=== PATIENT | female | born 1965 | race Caucasian/White ===

== ENCOUNTER 2021-09-16 06:01 | Emergency (ER) | payer BC, SELFPAY ==
[2021-09-16 06:17] VITALS: BP 132/84; PULSE 84; RESP 16; TEMP 36.4; O2SAT 99; BMI 32.9
--- NOTE | 2021-09-16 06:17 | CRLHL7_ITS ---
For Patients: As a result of the Century Cures Act, medical imaging exams and procedure reports are released immediately into your electronic medical record. You may view this report before your referring provider. If you have questions, please contact your health care provider. INDICATION: left calf pain COMPARISON: None. TECHNIQUE: A compression venous ultrasound exam was performed of the left lower extremity using montelongo-scale imaging, color Doppler and spectral Doppler analysis. FINDINGS: Sonographic imaging of the left lower extremity demonstrates normal compressibility and color Doppler venous blood flow within the common femoral vein, deep femoral vein, and the proximal greater saphenous vein. Within the thigh, the femoral vein is patent and compressible. At a lower level, the popliteal and posterior tibial veins also show normal compressibility. Sluggish flow in the popliteal vein and noted. Limited imaging of the contralateral groin demonstrates a normal spectral waveform and color Doppler venous blood flow within the right common femoral vein. IMPRESSION: Sluggish flow in the popliteal vein, however, there is no evidence of deep vein thrombosis within the left lower extremity. Dictated by Bonilla Main MD @ 09/16/2021 8:16:52 AM (Electronically Signed)
--- NOTE | 2021-09-16 06:18 | ED.GENADULT ---
HPI - General Adult General Time Seen by Provider: 06:18 <Damian Piña MD - Last Filed: 09/16/21 06:22> Date Seen: 09/16/21 <Damian Piña MD - Last Filed: 09/16/21 06:22> Chief complaint: Extremity Pain/Injury, Lower <Damian Piña MD - Last Filed: 09/16/21 06:22> Stated complaint: Left leg pain/headache <Damian Piña MD - Last Filed: 09/16/21 06:22> Time Seen by Provider: 09/16/21 06:10 <Damian Piña MD - Last Filed: 09/16/21 06:22> Source: patient <Damian Piña MD - Last Filed: 09/16/21 06:22> Mode of arrival: ambulatory <Damian Piña MD - Last Filed: 09/16/21 06:22> Limitations: no limitations <Damian Piña MD - Last Filed: 09/16/21 06:22> History of Present Illness HPI narrative: Patient presents with left leg pain and headache. She has 2 weeks of left leg pain, primarily on the anterior thigh sometimes going into the anterior lower leg. She describes it as aching. Does not seem to be related to walking or moving, occurs at rest as well. She took ibuprofen for this last week but nothing recently. No known injury review does not seem swollen to her. No chest pain or breathing difficulty. Patient recently drove here from [place]. She also woke up headache today. It is bi-parietal and constant with no nausea, vomiting, photophobia,, focal weakness or numbness. <Damian Piña MD - Last Filed: 09/16/21 06:22> Related Data Home medications: Home Medications Medication Instructions Recorded Confirmed No Known Home Medications 09/16/21 09/16/21 <Damian Piña MD - Last Filed: 09/16/21 06:22> Allergies/adverse reactions: Allergies Allergy/AdvReac Type Severity Reaction Status Date / Time sulfamethoxazole Allergy Intermediate Rash Verified 09/16/21 06:20 [From Sulfamethoxazole-Trimethoprim] trimethoprim Allergy Intermediate Rash Verified 09/16/21 06:20 [From Sulfamethoxazole-Trimethoprim] <Damian Piña MD - Last Filed: 09/16/21 06:22> Review of Systems Status of ROS: Reports: 10 or more systems reviewed and unremarkable except as noted in History and below <Damian Piña MD - Last Filed: 09/16/21 06:22> [facility] Medical History: Medical History (Updated 09/16/21 @ 07:51 by Damian Piña MD) No significant past medical history <Damian Piña MD - Last Filed: 09/16/21 06:22> Surgical History: Surgical History (Updated 09/16/21 @ 06:28 by Marco A Villafana RN) No significant past surgical history <Damian Piña MD - Last Filed: 09/16/21 06:22> Social History: Social History Smoking Status: Never smoker Do you use any of these nicotine containing products: None Second hand tobacco smoke exposure: No How often do you have a drink containing alcohol: never How often do you have six or more drinks on one occasion: Never AUDIT-C Alcohol total score: 0 Non-prescribed substance use: denies use <Damian Piña MD - Last Filed: 09/16/21 06:22> Exam Narrative: Exam Narrative: General: Well-developed and well-nourished, no acute distress Head: Atraumatic and normocephalic Eyes: Pupils are equal reactive, extraocular motions intact, conjunctiva clear ENT: External nose and ears are normal, posterior pharynx without erythema or exudate Neck: No midline cervical tenderness, full spontaneous range of motion the neck, trachea midline, no adenopathy Heart: Regular rate and rhythm no murmurs or thrills Lungs: Clear to auscultation bilaterally without wheezes or crackles Abdomen: Soft, nontender, nondistended with active bowel sounds Musculoskeletal: Mild diffuse tenderness of the left leg particularly anterior upper leg. Compartments of the upper and lower leg are soft. No pain with passive ankle flexion. No numbness, no decreased sensation. No tenderness of the SI area or low lumbar area. Neurologic: Awake, alert, and oriented x3, no gross focal neurologic deficits, cranial nerves intact as tested Psych: Mood and affect are appropriate Skin: No rashes <Damian Piña MD - Last Filed: 09/16/21 06:22> Const: Vital Signs, click to edit/add: Vital Signs - 24 hr 09/16/21 06:17 Temperature 97.6 F Pulse Rate [Right Pulse Oximeter] 84 Respiratory Rate 16 Blood Pressure [Ri ght Upper Arm] 132/84 Pulse Oximetry 99 Oxygen Delivery Me thod Room Air <Damian Piña MD - Last Filed: 09/16/21 06:22> Vital Signs, click to edit/add: Vital Signs - 24 hr 09/16/21 06:17 Temperature 97.6 F Pulse Rate [Right Pulse Oximeter] 84 Respiratory Rate 16 Blood Pressure [Ri ght Upper Arm] 132/84 Pulse Oximetry 99 Oxygen Delivery Me thod Room Air <Karen Rand MD - Last Filed: 09/16/21 08:39> Course Course Hospital Course: Ultrasound does not show any evidence of DVT, labs were unremarkable. <Damian Piña MD - Last Filed: 09/16/21 06:22> Vital Signs Vital signs: Initial Vital Signs Temperature 97.6 F 09/16/21 06:17 Temperature Source Temporal Artery Scan 09/16/21 06:17 Pulse Rate 84 09/16/21 06:17 Respiratory Rate 16 09/16/21 06:17 Blood Pressure 132/84 09/16/21 06:17 Blood Pressure Mean 100 09/16/21 06:17 Blood Pressure Position Sitting 09/16/21 06:17 Pulse Oximetry 99 09/16/21 06:17 Oxygen Delivery Method 09/16/21 06:17 Vital Signs Temperature 97.6 F 09/16/21 06:17 Pulse Rate 84 09/16/21 06:17 Respiratory Rate 16 09/16/21 06:17 Blood Pressure 132/84 09/16/21 06:17 Pulse Oximetry 99 09/16/21 06:17 Oxygen Delivery Method 09/16/21 06:17 Temperature 97.6 F 09/16/21 06:17 Pulse Rate 84 09/16/21 06:17 Respiratory Rate 16 09/16/21 06:17 Blood Pressure 132/84 09/16/21 06:17 Pulse Oximetry 99 09/16/21 06:17 Oxygen Delivery Method 09/16/21 06:17 <Damian Piña MD - Last Filed: 09/16/21 06:22> Initial Vital Signs Temperature 97.6 F 09/16/21 06:17 Temperature Source Temporal Artery Scan 09/16/21 06:17 Pulse Rate 84 09/16/21 06:17 Respiratory Rate 16 09/16/21 06:17 Blood Pressure 132/84 09/16/21 06:17 Blood Pressure Mean 100 09/16/21 06:17 Blood Pressure Position Sitting 09/16/21 06:17 Pulse Oximetry 99 09/16/21 06:17 Oxygen Delivery Method 09/16/21 06:17 Vital Signs Temperature 97.6 F 09/16/21 06:17 Pulse Rate 84 09/16/21 06:17 Respiratory Rate 16 09/16/21 06:17 Blood Pressure 132/84 09/16/21 06:17 Pulse Oximetry 99 09/16/21 06:17 Oxygen Delivery Method 09/16/21 06:17 Temperature 97.6 F 09/16/21 06:17 Pulse Rate 84 09/16/21 06:17 Respiratory Rate 16 09/16/21 06:17 Blood Pressure 132/84 09/16/21 06:17 Pulse Oximetry 99 09/16/21 06:17 Oxygen Delivery Method 09/16/21 06:17 <Karen Rand MD - Last Filed: 09/16/21 08:39> Medical Decision Making MDM Narrative Medical decision making narrative: Patient seen examined, prior records reviewed. Differential diagnosis includes but not limited to DVT, strain, sprain, arthritis, myalgia, headache. Patient presents with left leg pain for the last 2 weeks. No palpable cords or focal tenderness along the venous structures, however patient did recently drive here from [place], ultrasound is ordered. Basic panel ordered as well as Toradol and fluids to help with symptoms. Patient declines IV, Toradol, and fluids but is agreeable to lab work and ultrasound <Damian Piña MD - Last Filed: 09/16/21 06:22> Patient seen examined, prior records reviewed. Differential diagnosis includes but not limited to DVT, strain, sprain, arthritis, myalgia, headache. Patient presents with left leg pain for the last 2 weeks. No palpable cords or focal tenderness along the venous structures, however patient did recently drive here from [place], ultrasound is ordered. Basic panel ordered as well as Toradol and fluids to help with symptoms. Patient declines IV, Toradol, and fluids but is agreeable to lab work and ultrasound. Work Up unremarkable. We discussed symptomatic treatment reasons to return for follow-up. We did discuss exercises to help with increased circulation of the lower extremities. Patient was agreeable and had no other questions. <Karen Rand MD - Last Filed: 09/16/21 08:39> Medical Records Medical records reviewed: Yes I reviewed the patient's medical records <Damian Piña MD - Last Filed: 09/16/21 06:22> Lab Data Lab results reviewed: Yes I reviewed the patient's lab results <Damian Piña MD - Last Filed: 09/16/21 06:22> Yes I reviewed the patient's lab results <Karen Rand MD - Last Filed: 09/16/21 08:39> Labs: Lab Results 09/16/21 Range/Units 06:25 Sodium 140 (135-149) mmol/L Potassium 4.0 (3.6-5.1) mmol/L Chloride 104 (96-114) mmol/L Carbon Dioxide 29 (20-32) mmol/L BUN 14 (7-30) mg/dL Creatinine 0.6 (0.5-1.5) mg/dL Estimated Creat Clear 103.02 Estimated GFR 106 ml/min Glucose 103 (60-115) mg/dL Calcium 9.0 (8.4-10.6) mg/dL <Damian Piña MD - Last Filed: 09/16/21 06:22> Lab Results 09/16/21 Range/Units 06:25 Sodium 140 (135-149) mmol/L Potassium 4.0 (3.6-5.1) mmol/L Chloride 104 (96-114) mmol/L Carbon Dioxide 29 (20-32) mmol/L BUN 14 (7-30) mg/dL Creatinine 0.6 (0.5-1.5) mg/dL Estimated Creat Clear 103.02 Estimated GFR 106 ml/min Glucose 103 (60-115) mg/dL Calcium 9.0 (8.4-10.6) mg/dL <Karen Rand MD - Last Filed: 09/16/21 08:39> Imaging Data Venous US: Attestation: I have reviewed the pertinent imaging results. <Karen Rand MD - Last Filed: 09/16/21 08:39> Radiologist's impression: FINDINGS: Sonographic imaging of the left lower extremity demonstrates normal compressibility and color Doppler venous blood flow within the common femoral vein, deep femoral vein, and the proximal greater saphenous vein. Within the thigh, the femoral vein is patent and compressible. At a lower level, the popliteal and posterior tibial veins also show normal compressibility. Sluggish flow in the popliteal vein and noted. Limited imaging of the contralateral groin demonstrates a normal spectral waveform and color Doppler venous blood flow within the right common femoral vein. IMPRESSION: Sluggish flow in the popliteal vein, however, there is no evidence of deep vein thrombosis within the left lower extremity. <Karen Rand MD - Last Filed: 09/16/21 08:39> Discharge Plan Discharge Clinical Impression: Headache, Left leg pain <Damian Piña MD - Last Filed: 09/16/21 06:22> Patient Disposition: Home, Self-Care <Damian Piña MD - Last Filed: 09/16/21 06:22> Instructions: Acute Headache (DC), Leg Pain (ED) <Damian Piña MD - Last Filed: 09/16/21 06:22> Additional Instructions: Return to the ER if her symptoms are getting worse. Otherwise follow-up with your primary care provider once you get home. Recommend increasing daily exercise-recommend 20 minutes of walking daily to help with circulation of the lower extremities. Recommend wearing compression socks when you travel, especially when sitting for prolonged periods of time in a car or airplane. <Damian Piña MD - Last Filed: 09/16/21 06:22> Activity Level: No Restrictions <Damian Piña MD - Last Filed: 09/16/21 06:22> No Restrictions <Karen Rand MD - Last Filed: 09/16/21 08:39> Discharge Diet: Regular <Damian Piña MD - Last Filed: 09/16/21 06:22> Regular <Karen Rand MD - Last Filed: 09/16/21 08:39> Prescriptions: No Action No Known Home Medications <Damian Piña MD - Last Filed: 09/16/21 06:22> Follow Up/Referrals: Orthopedics, [facility] [Provider Group] - 2 Days Provider,Not a Local [Primary Care Provider] - <Damian Piña MD - Last Filed: 09/16/21 06:22> Stand Alone Forms: [facility] Info Instructions <Damian Piña MD - Last Filed: 09/16/21 06:22>
--- NOTE | 2021-09-16 06:29 | ED.NURSE ---
pt. requested to not have iv at this time. updated and stated it is ok at this time.
[2021-09-16 06:44] LABS: Chloride* 104 mmol/L (96-114)
[2021-09-16 06:45] LABS: Sodium* 140 mmol/L (135-149)
[2021-09-16 06:47] LABS: Creatinine* 0.6 mg/dL (0.5-1.5); Est. Creatinine Clearance* 103.02; Estimated Glomerular Filt Rate 106 ml/min
[2021-09-16 06:48] LABS: Blood Urea Nitrogen* 14 mg/dL (7-30); Carbon Dioxide* 29 mmol/L (20-32); Glucose* 103 mg/dL (60-115)
== END 2021-09-16 09:15 | disposition home or self-care (01) ==
PROVIDERS: Family Medicine; Emergency Provider Family Medicine
DX: R51.9 Headache, unspecified (principal); M79.605 Pain in left leg
CPT/HCPCS: 36415; 80048; 93971; 99284